=== PATIENT | female | born 1980 | race Caucasian/White ===

== ENCOUNTER 2017-03-07 16:42 | Emergency (ER) | payer OTHER ==
--- NOTE | 2017-03-07 17:15 | ERPHSYRPT ---
- History of Present Illness Time Seen by Provider: 03/07/17 17:05 Source: patient Exam Limitations: no limitations Patient Subjective Stated Complaint: ear ache and now causing headache Triage Nursing Assessment: pt alert and oreitnedx3, gait is steady, ambualtes by , self, nasal drainage, puffyness around eyes, pupils perrla3, lung sounds celar, skin warm dry and intact Physician History: 36-year-old white female arrives with complaint of right ear pains nasal stuffiness symptoms for one week. No nausea no vomiting. Past medical history includes GERD, anxiety, depression. 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 Timing/Duration: abrupt onset, weeks (1 week) Severity: moderate ENT Location: ear (R) Prearrival Treatment: no prearrival treatment Modifying Factors: Improves With: nothing Associated Symptoms: ear pain (R), nasal congestion/drainage, No ear pain (L), No cough, No fever, No chills, No change in hearing, No dizziness, No drooling, No ear drainage, No facial pain/swelling, No headache, No hearing loss, No jaw pain, No malaise, No motion sickness, No epistaxis, No nasal foreign body, No neck pain, No poor fluid intake, No poor solids intake, No ringing of ears, No swollen glands, No sinus infection, No sore throat, No tooth pain, No difficulty swallowing, No voice change Allergies/Adverse Reactions: codeine Allergy (Verified 03/07/17 16:53) Hx Tetanus, Diphtheria Vaccination/Date Given: Yes Hx Influenza Vaccination/Date Given: No Hx Pneumococcal Vaccination/Date Given: No Immunizations Up to Date: Yes - Review of Systems Constitutional: No Fever, No Chills Eyes: No Symptoms, No Discharge, No Eye Pain, No Eye Redness, No Itchy, No Photophobia, No Tearing, No Vision Changes, No Double Vision, No Foreign Body Sensation Ears, Nose, & Throat: Ear Pain, Hearing Changes, Nose Congestion, Nose Discharge , Sinus Drainage, No Ear Discharge, No Tinnitus, No Nose Pain, No Epistaxis, No Mouth Pain, No Mouth Swelling, No Loose Teeth, No Throat Pain, No Throat Swelling, No Hoarse, No Painful Swallowing, No Snoring, No Stridor Respiratory: No Cough, No Dyspnea Cardiac: No Chest Pain, No Edema, No Syncope Abdominal/Gastrointestinal: No Abdominal Pain, No Nausea, No Vomiting, No Diarrhea Genitourinary Symptoms: No Dysuria Musculoskeletal: No Back Pain, No Neck Pain Skin: No Rash Neurological: No Dizziness, No Focal Weakness, No Sensory Changes Psychological: No Symptoms Endocrine: No Symptoms All Other Systems: Reviewed and Negative - Past Medical History Pertinent Past Medical History: Yes GI Medical History: Other - Past Surgical History Past Surgical History: Yes Gastrointestinal: Appendectomy, Cholecystectomy Female Surgical History: Tubal Ligation, Other Other Surgical History: tumore removed from uterous - Social History Smoking Status: Current every day smoker Drug Use: marijuana - Female History Hx Now: No - Nursing Vital Signs Nursing Vital Signs: Initial Vital Signs Temperature 97.7 F 03/07/17 16:44 Pulse Rate 98 H 03/07/17 16:44 Respiratory Rate 16 03/07/17 16:44 Blood Pressure 92/67 03/07/17 16:44 O2 Sat by Pulse Oximetry 97 03/07/17 16:44 Pain Scale Pain Intensity 9 - Physical Exam General Appearance: mild distress Eye Exam: bilateral eye: normal inspection, PERRL, EOMI, other (fundi are unremarkable) Ear Exam: right ear: TM red, TM bulging, left ear: TM normal, bilateral ear: auricle normal, canal normal Nasal Exam: No normal inspection (patient with boggy erythematous nasal mucosa white drainage) Throat Exam: pharynx normal, moist mucus membranes, No tonsillar exudate Neck Exam: supple Cardiovascular/Respiratory Exam: normal breath sounds, regular rate/rhythm Abdominal Exam: non-tender, soft Neurologic Exam: alert, oriented x 3, sensation nml, No motor deficits Skin Exam: normal color, warm, dry SpO2 Interpretation: normal (97%) SpO2: 97 Oxygen Delivery: Room Air - Course Nursing assessment & vital signs reviewed: Yes - Progress Progress: improved Progress Note: 03/07/17 17:13 36-year-old white female arrives with complaint of right ear pain and nasal congestion symptoms for one week. Patient with boggy erythematous nasal mucosa white drainage she also has bulging right tympanic membrane which is erythematous. Will go ahead and place patient on amoxicillin small amount of Strandquist. Will give patient Toradol injection here in the emergency room. - Departure Time of Disposition: 17:13 Departure Disposition: Home Clinical Impression: Right ear pain Right otitis media Qualifiers: Otitis media type: suppurative Chronicity: acute Recurrence: not specified as recurrent Spontaneous tympanic membrane rupture: without spontaneous rupture Qualified Code(s): H66.001 - Acute suppurative otitis media without spontaneous rupture of ear drum, right ear Sinusitis Qualifiers: Sinusitis location: maxillary Chronicity: acute Recurrence: not specified as recurrent Qualified Code(s): J01.00 - Acute maxillary sinusitis, unspecified Condition: Fair Critical Care Time: No Additional Instructions: Return home. Plenty of fluids. Amoxicillin 500 mg orally 3 times a day for 10 days. Strandquist 5/325 #12 one orally every 4-6 hours as needed for pain. Follow-up with your family Dr. if symptoms are worse, nowhere 48 hours, or persist longer than one week. Return for acute distress or for severe symptoms.
[2017-03-07] MEDS ORDERED: TORAdol 30 mg Injection ONE (17:19)
[2017-03-07] MEDS: TORAdol 30 mg Injection IM ONE (17:21)
[2017-03-07 17:36] VITALS: BP 106/74; PULSE 92; O2SAT 96
== END 2017-03-07 17:40 | disposition home or self-care (01) ==
LOC: ED 16:42
DX: H66.001 Acute suppurative otitis media without spontaneous rupture of ear drum, right ear (principal); J01.00 Acute maxillary sinusitis, unspecified
CPT/HCPCS: 96372; 99282; 99284; J1885